=== PATIENT | female | born 1960 | race Caucasian/White ===

== ENCOUNTER 2018-04-01 17:27 | Inpatient (IN) | payer OTHER ==
[~2018-04-01] VITALS: Ht 149.9 cm; Wt 55.3 kg
[2018-04-01 17:31] VITALS: BP 144/74
--- NOTE | 2018-04-01 17:34 | NUR ---
PT GIVEN A CUP FOR URINE SAMPLE AND TAKEN OUT TO THE LOBBY TO WAIT FOR THE NEXT AVAILABLE BED W/ VSS AND STEADY GAIT.
--- NOTE | 2018-04-01 17:52 | NUR ---
PT TAKEN TO BED 12 AT THIS TIME, AMBULATORY W/ STEADY GAIT
--- NOTE | 2018-04-01 18:00 | NUR ---
58 YO F BIB SELF W/ C/O LEFT LOWER QUADRANT ABD PAIN THAT RADIATES TO LEFT FLANK X 2 DAYS, 03/30. PT REPORTS THAT WHEN SHE SITS DOWN THE PAIN IS EXCRUCIATING. PT DENIES DYSURIA. DENIES INJURY/TRAUMA. DENIES N/V/D/FEVER/CHILLS. . DENIES N/V/D; SKIN IS PINK/WARM/DRY; AAOX4 WITH EVEN AND STEADY GAIT; LUNGS CLEAR BL; HR EVEN AND REGULAR; PT DENIES ANY FEVER, CP, SOB, OR COUGH AT THIS TIME; PATIENT STATES PAIN OF 10/10 AT THIS TIME; VSS; PATIENT POSITIONED FOR COMFORT; HOB ELEVATED; BEDRAILS UP X2; BED DOWN. ER MD MADE AWARE OF PT STATUS.
--- NOTE | 2018-04-01 19:10 | NUR ---
report given to celine vera.
--- NOTE | 2018-04-01 19:15 | NUR ---
PT C/O LLQ PAIN X 3 DAYS. ABD SOFT, ROUND, +TENDERNESS TO LLQ, BS HYPOACTIVE X 4. LAST BM TODAY AT 1600. PT STATES SHE ATE TODAY, DENIES N/V
[2018-04-01 19:54] LABS: BASOPHILS % (AUTO) 0.2 % (0.0-2.0); EOSINOPHILS # (AUTO) 0.2 K/uL (0-0.4); HEMATOCRIT 38.8 % (36-48); HEMOGLOBIN 12.7 g/dL (12.0-16.0); LYMPHOCYTES # (AUTO) 2.9 K/uL (2.5-16.5); MEAN CORPUSCULAR HEMOGLOBIN 27 pg (27-31); MEAN CORPUSCULAR HGB CONC 33 g/dL (33-37); MEAN CORPUSCULAR VOLUME 83.6 fL (80-94); MONOCYTES # (AUTO) 0.5 K/uL (0.8-1.0); MONOCYTES % (AUTO) 7.3 % (1.7-9.3); NEUTROPHILS # (AUTO) 2.9 K/uL (1.8-7.7); NEUTROPHILS % (AUTO) 44.5 % (42.2-75.2); PLATELET COUNT (AUTO) 217 K/uL (140-450); RED BLOOD CELL COUNT(AUTO) 4.63 MIL/uL (4.20-5.40); WHITE BLOOD COUNT (AUTO) 6.4 K/uL (4.8-10.8)
[2018-04-01 20:29] LABS: ALBUMIN 3.4 g/dL (3.4-5.0); TOTAL BILIRUBIN 0.2 mg/dL (0.0-1.0)
[2018-04-01 20:30] LABS: ANION GAP 4.1 (8-16); CARBON DIOXIDE 28.7 mmol/L (21-32); CREATININE 0.7 mg/dL (0.6-1.3); POTASSIUM 3.8 mmol/L (3.5-5.1)
[2018-04-01 21:30] LABS: APPEARANCE,URINE CLEAR (CLEAR); BILIRUBIN,URINE NEGATIVE (NEGATIVE); BLOOD, URINE NEGATIVE (NEGATIVE); COLOR,URINE YELLOW (YELLOW); LEUKOCYTE ESTERASE ,URINE NEGATIVE (NEGATIVE); NITRITE, URINE NEGATIVE (NEGATIVE); UGLUCOSE NEGATIVE (NEGATIVE)
--- NOTE | 2018-04-01 21:30 | NUR ---
PT RESTING IN BED COMFORTABLY. UPDATED REGARDING CARE. NO NEW COMPLAINTS AT THIS TIME
[2018-04-01] MEDS ORDERED: NACL 0.9% 1,000 ML IV ONE (21:45)
[2018-04-01] MEDS ORDERED: NACL 0.9% 1,000 ML IV SCH (21:51)
[2018-04-01] MEDS ORDERED: MORPHINE SULFATE 2 MG/ML SYR IVP PRN (21:55)
[2018-04-01] MEDS ORDERED: ACETAMINOPHEN 325 MG TAB PO PRN (21:55)
[2018-04-01] MEDS ORDERED: ZOLPIDEM 5 MG TAB PO PRN (21:55)
[2018-04-01] MEDS ORDERED: MORPHINE SULFATE 4 MG/ML SYR IVP ONE (21:55)
[2018-04-01] MEDS ORDERED: DOCUSATE SODIUM 100 MG GELCAP PO PRN (21:55)
[2018-04-01] MEDS ORDERED: LORazepam 2 MG/ML VIAL IM/IVP PRN (21:55)
[2018-04-01 22:48] LABS: PROTHROMBIN TIME 9.5 secs (10.8-13.4)
--- NOTE | 2018-04-01 22:55 | NUR ---
Patient will be admitted to care of [facility]. Admited to TELE . Will go to room 119B. Belongings list completed. Report to ROSAURA ESPINOZA.
--- NOTE | 2018-04-01 23:00 | NUR ---
RECEIVED FROM ER PER ANURAG AWAKE AND ALERT. ABLE TO VERBALIZE NEEDS WELL IN [place]. CARE PLANS FOR THE NIGHT DISCUSSED WITH HER. NO SOB. DENIES ANY PAIN AT THIS TIME. MEDICATED IN ER WITH MORPHINE IVP. DX. SBO. TELEMETRY MONITORING. CALL LIGHT WITH IN REACH. EXPLAINED RAPID RESPONSE. PT. AMBULATING WELL. ROM X 4. IVF SITE TO LAC #18 WITH GOOD BLOOD RETURN. AFEBRILE. SKIN INTACT.
[2018-04-01 23:22] LABS: CHOL/HDL RATIO 3.4 (1-4.5); MAGNESIUM 2.4 mg/dL (1.8-2.4); PHOSPHORUS 3.8 mg/dL (2.5-4.9)
--- NOTE | 2018-04-01 23:45 | NUR ---
FAMILY MEMBERS IN HERE. NO COMPLAINTS DONE. PT. TALKING WELL AND SMILING. SEEN BY RESIDENT .
[2018-04-01 23:48] LABS: THYROID STIMULATING HORMONE 1.64 uIU/mL (0.34-3.74)
[2018-04-02 00:04] VITALS: BP 154/77
[2018-04-02] MEDS ORDERED: LORazepam 2 MG/ML VIAL ONE (00:18)
[2018-04-02] MEDS: DEXT 5% / NACL 0.45% 1,000 ML IV SCH ×2 (01:50→13:05)
--- NOTE | 2018-04-02 01:55 | NUR ---
NGT INSERTED BY CHARGE NURSE. POSITIVE AIR FLOW IN STOMACH AREA HEARD THRU STETHOSCOPE BY CHARGE NURSE AND ME. FAMILY MEMBERS STILL HERE. TOLERATED WELL. NPO ORDERED. A/O X 4. ROM X 4. TELEMETRY MONITORING. SLEEPING AT THIS TIME.
--- NOTE | 2018-04-02 02:13 | NUR ---
SLEEPING AT THIS TIME.
[2018-04-02] MEDS ORDERED: INSULIN LISPRO SLIDING SCALE 100 UNITS/ML VIAL SUBQ PRN (03:40)
[2018-04-02] MEDS ORDERED: DEXTROSE 50% 50 ML SYR IVP PRN (03:40)
[2018-04-02 05:00] VITALS: BP 139/59
--- NOTE | 2018-04-02 05:30 | NUR ---
NGT OUTPUT 230. WHITISH IN COLOR. NO RESTLESSNESS NOTED. CALL LIGHT WITH IN REACH.
[2018-04-02] MEDS: BLOOD GLUCOSE MONITORING 1 DEV DEV FS SCH ×4 (05:39→20:08)
[2018-04-02 07:02] LABS: ANION GAP 12.4 (8-16); CARBON DIOXIDE 25.3 mmol/L (21-32); CREATININE 0.6 mg/dL (0.6-1.3); POTASSIUM 3.7 mmol/L (3.5-5.1)
--- NOTE | 2018-04-02 07:02 | NUR ---
PATIENT HAS BEEN SCREENED AND CATEGORIZED MODERATE NUTRITION RISK. PATIENT WILL BE SEEN WITHIN 3-5 DAYS OF ADMISSION. 04/03/18-04/05/18 ZAIDA BELL MS, RDN
--- NOTE | 2018-04-02 07:02 | NUR ---
NO PAIN COMPLAINTS DONE THIS SHIFT. BEEN SLEEPING WELL. TELEMETRY MONITORING. NGT OUTPUT 20 ML , CLEAR IN COLOR. NO URINE COLLECTED RT PER PT. SHE URINATED SOON SHE WAS TRANSFERRED TO THE FLOOR.
[2018-04-02 07:03] LABS: MAGNESIUM 2.1 mg/dL (1.8-2.4); PHOSPHORUS 3.5 mg/dL (2.5-4.9)
--- NOTE | 2018-04-02 07:15 | NUR ---
RECEIVED PATIENT REPORT AT BEDSIDE. PATIENT AWAKE, ALERT AND ORIENTED. NO S/S OF DISTRESS NOTED. PATIENT REPORTS OF HAVING BM EARLY IN THE MORNING. BOWEL SOUNDS NOTED. NGT NOTED IN THE RIGHT THE NARES, ON LOW CONTINUOUS SUCTION. PATIENT ON TELE MONITORING. BED LOWERED WITH CALL LIGHT WITHIN REACH. WILL CONTINUE TO MONITOR
--- NOTE | 2018-04-02 07:31 | NUR ---
ABLE TO COLLECT URINE. ASSISTED IN AMBULATING TO RESTROOM SITUATED INSIDE ROOM. ROM X 4. UA SPECIMEN SENT TO LAB.
--- NOTE | 2018-04-02 07:32 | NUR ---
ENDORSE TO THE NEXT RN FOR CONTINUITY OF CARE. NO COMPLAINTS DONE.
[2018-04-02 07:48] LABS: BASOPHILS % (AUTO) 0.4 % (0.0-2.0); EOSINOPHILS # (AUTO) 0.1 K/uL (0-0.4); HEMATOCRIT 40.4 % (36-48); HEMOGLOBIN 13.1 g/dL (12.0-16.0); LYMPHOCYTES # (AUTO) 1.1 K/uL (2.5-16.5); LYMPHOCYTES % (AUTO) 18.1 % (20.5-51.1); MEAN CORPUSCULAR HEMOGLOBIN 27 pg (27-31); MEAN CORPUSCULAR HGB CONC 33 g/dL (33-37); MEAN CORPUSCULAR VOLUME 83.9 fL (80-94); MONOCYTES # (AUTO) 0.3 K/uL (0.8-1.0); MONOCYTES % (AUTO) 5.2 % (1.7-9.3); NEUTROPHILS # (AUTO) 4.7 K/uL (1.8-7.7); NEUTROPHILS % (AUTO) 75.3 % (42.2-75.2); PLATELET COUNT (AUTO) 214 K/uL (140-450); RED BLOOD CELL COUNT(AUTO) 4.81 MIL/uL (4.20-5.40); RED CELL DISTRIBUTION WIDTH 15.1 % (11.6-13.7); WHITE BLOOD COUNT (AUTO) 6.3 K/uL (4.8-10.8)
[2018-04-02 08:00] VITALS: BP 149/77
--- NOTE | 2018-04-02 08:00 | NUR ---
URINE SPECIMEN SENT TO THE LAB
[2018-04-02] MEDS ORDERED: HYDROcodone/APAP 5/325 MG 1 TAB TAB ONE ×2 (09:11→13:15)
[2018-04-02] MEDS ORDERED: ONDANSETRON 4 MG/2 ML VIAL ONE (09:12)
[2018-04-02] MEDS: ONDANSETRON 4 MG/2 ML VIAL IM/IVP PRN ×2 (09:15→20:28)
[2018-04-02] MEDS: HYDROcodone/APAP 5/325 MG 1 TAB TAB PO PRN ×3 (09:18→20:27)
[2018-04-02 11:28] LABS: BARBITURATE, URINE NEG. ng/ml (NEG <=200); BENZODIAZEPINE, URINE NEG. ng/mL (NEG <=200); CANNABINOID, URINE NEG. ng/mL (NEG <=50); COCAINE, URINE NEG. ng/mL (NEG <=300); OPIATE, URINE POS. ng/mL (NEG <=2000); PHENCYCLIDINE SCREEN,URINE NEG. ng/mL (NEG <=25)
--- NOTE | 2018-04-02 11:35 | NUR ---
NGT NOT VISUALIZED IN THE CXR. NEW NGT INSERTED IN THE LEFT NARES. WAITING FOR CXR TO VERIFY PLACEMENT
[2018-04-02 12:00] VITALS: BP 152/74
--- NOTE | 2018-04-02 14:06 | NUR ---
PATIENT ASLEEP IN BED. NO S/S OF DISTRESS NOTED. FAMILY MEMBERS PRESENT AT BEDSIDE
[2018-04-02 16:00] VITALS: BP 151/71
--- NOTE | 2018-04-02 16:20 | NUR ---
PATIENT WAS SEEN AND EVALUATED BY DR ASCENCIO. PER DR, PATIENT DOES NOT NEED SURGERY
--- NOTE | 2018-04-02 16:30 | NUR ---
PATIENT AMBULATED TO THE BATHROOM AND HAD A BM. NO S/S OF DISTRESS NOTED
--- NOTE | 2018-04-02 19:30 | NUR ---
RECEIVED REPORT FROM DAY SHIFT NURSE, BECKY, AT PT BEDSIDE. PT IN STABLE CONDITION. PT IS AAO X4. PT IS ON RA. RESPIRATIONS ARE EVEN AND UNLABORED. IV ACCESS IN L AC 22G WITH IVF RUNNING PER MD ORDERS. IV IS PATENT AND INTACT. PT SKIN IS INTACT. NGT PLACED L NARE ON CONTINUOUS LOW SUCTION. BED IS LOCKED, LOW POSITION WITH SIDE RAILS UP X2. BOARD UPDATED. CALL LIGHT IS WITHIN REACH. WILL CONTINUE TO MONITOR.
--- NOTE | 2018-04-02 19:30 | NUR ---
PATIENT REPORT GIVEN AT BEDSIDE. PATIENT ENDORSED IN STABLE CONDITION
[2018-04-02 20:00] VITALS: BP 157/81
--- NOTE | 2018-04-02 20:28 | NUR ---
PT BS CHECKED, 114. NO COVERAGE NEEDED PER MD ORDERS. PT C/O PAIN AND NAUSEA. ZOFRAN AND NORCO GIVEN. PT TOLERATED WELL. WILL CONTINUE TO MONITOR.
--- NOTE | 2018-04-02 21:28 | NUR ---
PT NOW ASLEEP IN BED. NO SIGNS OR SYMPTOMS OF DISTRESS. WILL CONTINUE TO MONITOR.
--- NOTE | 2018-04-02 23:20 | NUR ---
PT ASLEEP IN BED. NO SIGNS OR SYMPTOMS OF DISTRESS. WILL CONTINUE TO MONITOR.
[2018-04-03] VITALS: BP 142/79
[2018-04-03] MEDS: DEXT 5% / NACL 0.45% 1,000 ML IV SCH (00:25)
--- NOTE | 2018-04-03 00:25 | NUR ---
NEW BAG OF IVF STARTED. PT HAS NO SIGNS OR SYMPTOMS OF DISTRESS. WILL CONTINUE TO MONITOR.
--- NOTE | 2018-04-03 01:38 | NUR ---
ASSISTED PT UP TO BATHROOM. PT TOLERATED WELL. NO SIGNS OR SYMPTOMS OF DISTRESS. ALL OTHER NEEDS ARE MET AT THIS TIME. WILL CONTINUE TO MONITOR.
[2018-04-03 04:00] VITALS: BP 151/72
--- NOTE | 2018-04-03 04:00 | NUR ---
PT VS WITHIN NORMAL LIMITS. PT IS RESTING COMFORTABLY IN BED. ALL NEEDS ARE MET AT THIS TIME. WILL CONTINUE TO MONITOR.
--- NOTE | 2018-04-03 04:19 | NUR ---
ASSISTED PT UP TO BATHROOM. PT TOLERATED WELL. NO SIGNS OR SYMPTOMS OF DISTRESS. ALL OTHER NEEDS ARE MET AT THIS TIME. WILL CONTINUE TO MONITOR.
--- NOTE | 2018-04-03 05:52 | NUR ---
PT BS CHECKED, 128. NO COVERAGE NEEDED PER MD ORDERS. WILL CONTINUE TO MONITOR PT.
[2018-04-03] MEDS: BLOOD GLUCOSE MONITORING 1 DEV DEV FS SCH ×2 (05:53→12:08)
--- NOTE | 2018-04-03 06:19 | NUR ---
PER MD ORDERS NG TUBE REMOVED. PT TOLERATED WELL. NO SIGNS OR SYMPTOMS OF DISTRESS. WILL CONTINUE TO MONITOR.
--- NOTE | 2018-04-03 07:10 | NUR ---
ENDORSED PT TO DAY SHIFT NURSE FOR CONTINUITY OF CARE. PT IN STABLE CONDITION.
--- NOTE | 2018-04-03 07:20 | NUR ---
RECEIVED PATIENT REPORT AT BEDSIDE. PATIENT AWAKE, ALERT AND ORIENTED. PATIENT REPORTS OF HAVING A BM EARLY IN THE MORNING. PATIENT DENIES PAIN AT THIS TIME. PATIENT ON TELE MONITORING. BED LOWERED WITH CALL LIGHT WITHIN REACH. WILL CONTINUE TO MONITOR
[2018-04-03 08:00] VITALS: BP 127/69
[2018-04-03 08:18] LABS: BASOPHILS % (AUTO) 0.1 % (0.0-2.0); EOSINOPHILS # (AUTO) 0.1 K/uL (0-0.4); EOSINOPHILS % (AUTO) 1.3 % (0.0-4.0); HEMATOCRIT 42.5 % (36-48); HEMOGLOBIN 14.1 g/dL (12.0-16.0); LYMPHOCYTES # (AUTO) 1.7 K/uL (2.5-16.5); LYMPHOCYTES % (AUTO) 22.4 % (20.5-51.1); MEAN CORPUSCULAR HEMOGLOBIN 28 pg (27-31); MEAN CORPUSCULAR HGB CONC 33 g/dL (33-37); MEAN CORPUSCULAR VOLUME 83.7 fL (80-94); MONOCYTES # (AUTO) 0.5 K/uL (0.8-1.0); MONOCYTES % (AUTO) 6.5 % (1.7-9.3); NEUTROPHILS # (AUTO) 5.4 K/uL (1.8-7.7); NEUTROPHILS % (AUTO) 69.7 % (42.2-75.2); PLATELET COUNT (AUTO) 233 K/uL (140-450); RED BLOOD CELL COUNT(AUTO) 5.08 MIL/uL (4.20-5.40); RED CELL DISTRIBUTION WIDTH 15.2 % (11.6-13.7); WHITE BLOOD COUNT (AUTO) 7.8 K/uL (4.8-10.8)
[2018-04-03 08:35] LABS: ANION GAP 11.8 (8-16); CARBON DIOXIDE 27.6 mmol/L (21-32); CREATININE 0.6 mg/dL (0.6-1.3); POTASSIUM 3.4 mmol/L (3.5-5.1)
[2018-04-03 08:36] LABS: MAGNESIUM 2.3 mg/dL (1.8-2.4); PHOSPHORUS 3.7 mg/dL (2.5-4.9)
[2018-04-03] MEDS ORDERED: DOCU-299 PO (11:31)
[2018-04-03] MEDS ORDERED: [UNRECOGNIZED DRUG - CODE] PO (11:31)
[2018-04-03 12:00] VITALS: BP 137/78
[2018-04-03] MEDS ORDERED: POTASSIUM CHLORIDE 10 MEQ TABER PO SCH (12:00)
--- NOTE | 2018-04-03 13:00 | NUR ---
PATIENT TOLERATED FULL LIQUID DIET WELL
--- NOTE | 2018-04-03 13:58 | NUR ---
PATIENT DISCHARGED TO HOME. DISCHARGE INSTRUCTIONS AND DISCHARGE PRESCRIPTIONS GIVEN. PATIENT VERBALIZED UNDERSTANDING. IV LINE DISCONTINUED. PATIENT LEFT WITH ALL HER BELONGINGS AND DISCHARGE PAPERS. PATIENT LEFT IN STABLE CONDITION
--- NOTE | 2018-04-04 10:03 | NUR ---
PER KAUR, DISTANCE EDUCATION TEACHER. REF NUMBER [id number] RETRO FAXED ER REPORT H&P, DISCHARGE SUMMARY AND PROGESS NOTES TO [facility] [phone] PHONE SHAD [phone] OP 3
== END 2018-04-03 13:58 | disposition home or self-care (01) | DRG 390 ==
LOC: MED 17:27 → MTU 21:55
PROVIDERS: ADMIT General Practice; ATTEND General Practice
DX: K56.609 Unspecified intestinal obstruction, unspecified as to partial versus complete obstruction (principal); I10 Essential (primary) hypertension; E78.00 Pure hypercholesterolemia, unspecified; E87.8 Other disorders of electrolyte and fluid balance, not elsewhere classified; E78.5 Hyperlipidemia, unspecified; E87.6 Hypokalemia; Z88.0 Allergy status to penicillin; Z83.3 Family history of diabetes mellitus; Z82.49 Family history of ischemic heart disease and other diseases of the circulatory system
CPT/HCPCS: 36415; 71045; 74018; 74250; 80048; 80053; 80305; 81003; 81025; 82140; 82150; 82550; 82948; 83036; 83615; 83690; 83735; 83880; 84100; 84134; 84436; 84443; 84484; 85025; 85610; 85730; 87081; 93005; 96374; 99285; J1815; J2060; J2270; J2405; Q0092